=== PATIENT | female | born 1970 | race Caucasian/White ===

== ENCOUNTER → 2016-07-03 | Outpatient (CLI) | payer BC ==
[~2016-07-03] MED LIST: refresh eye drops OPB
== END | disposition home or self-care (01) ==
LOC: C.LABSPEC 14:09
PROVIDERS: ATTEND Physician Assistant
DX: N94.9 Unspecified condition associated with female genital organs and menstrual cycle (principal)

== ENCOUNTER → 2016-08-26 | Outpatient (CLI) | payer BC ==
--- NOTE | 2016-08-26 15:12 | MAMMOGRAPHY REPORT ---
BILATERAL DIGITAL DIAGNOSTIC MAMMOGRAM TOMOSYNTHESIS WITH CAD AND TARGETED LEFT ULTRASOUND: 08/26/2016 CLINICAL HISTORY: 46-year-old woman with a history of reduction mammoplasty presents for follow-up of benign-appearing masses in the left breast, particularly 3:00 retroareolar axis. Also time of annua l bilateral screening exam. TECHNIQUE: Bilateral breast tomosynthesis in addition to standard 2D mammography was performed. Curre nt study was also evaluated with a Computer Aided Detection (CAD) system. COMPARISON: Comparison is made to exams dated: 02/26/2016 ultrasound, 12/05/2015 ultrasound, 12/05/19 16 mammogram, 08/23/2015 ultrasound, 08/23/2015 mammogram, and 03/07/2014 ultrasound - [facility]. BREAST COMPOSITION: The tissue of both breasts is extremely dense, which lowers the sensitivity of m ammography. FINDINGS: Linear scar markers overlie the periareolar aspect of each breast. No obvious new mass, ar chitectural distortion or cluster of microcalcifications is seen. There are a few benign-appearing r ound and punctate microcalcifications. Targeted ultrasound was performed throughout the left breast. In the 9:00 axis, 5 cm from the nipple , there is a circumscribed anechoic benign simple cyst measuring 6.4 x 4.5 x 6.1 mm. 2 adjacent cyst s in the 10:00 left breast, 3 cm from the nipple, measure 5.5 x 3.4 x 6.2 mm. In the 12:[address], 2 cm from the nipple, there are 2 abutting anechoic simple cysts measuring 3.2 x 3.0 x 4.3 mm in conglomerate. An oval parallel circumscribed isoechoic to hypoechoic solid-appearing mass abutting t he pectoralis muscle in the 3:00 retroareolar left breast measures 5.0 x 2.6 x 5.7 mm. This has not significantly changed when comparing to the ultrasound performed 08/23/2015 at which time it measured 5.4 x 2.8 x 6.3 mm. This most likely represent a benign fibroadenoma but another 12 month follow-up targeted ultrasound is recommended to ensure at least 2 years of stability to confirm benignity. In the 3:00 left breast, 4 cm from the nipple, there is a superficial oval parallel anechoic benign sim ple cyst measuring 5.4 x 1.7 x 4.4 mm. No other discrete solid or cystic mass is seen throughout the remainder of the left breast. IMPRESSION: ACR-BI-RADS CATEGORY 3: PROBABLY BENIGN, TARGETED ULTRASOUND ACR-BI-RADS CATEGORY 3: PRO BABLY BENIGN 1. Stable mammographic appearance of the breasts. 2. There are several scattered anechoic cysts throughout the left breast on ultrasound, compatible w ith benign fibrocystic changes. 3. There is a benign-appearing circumscribed oval parallel solid appearing mass in the 3:00 retroare olar left breast measuring 6.3 mm, that has not significantly changed on prior ultrasounds dating rob k to 08/23/2015. Another 12 month follow-up targeted ultrasound is recommended to ensure at least 2 years of stability to confirm benignity. Bilateral mammography is also due at that time. These results and recommendations were discussed with the patient at the time of the exam. Approximately 10% of breast cancers are not detected with mammography. A negative mammographic report should not delay biopsy if a clinically suggestive mass is present. Nancy Armijo M.D. ay/:08/26/2016 12:48:48 Blood Tester Fowl: Eda Ha, [facility] letter sent: Follow Up Recommended 3 BI-RADS Code: ACR-BI-RADS Category 3: Probably Benign Ultrasound BI-RADS: ACR-BI-RADS Category 3: Pr obably Benign
== END | disposition home or self-care (01) ==
LOC: C.MAMM 10:35
PROVIDERS: ATTEND Obstetrics & Gynecology
DX: Z12.31 Encounter for screening mammogram for malignant neoplasm of breast (principal); N63 Unspecified lump in breast; N64.89 Other specified disorders of breast

== ENCOUNTER → 2017-09-03 | Outpatient (CLI) | payer OTHER ==
[~2017-09-03] MED LIST changes: +CHOL1000 PO; +CYAN100020 PO
[2017-09-03 13:25] LABS: BASO % 0.6 %; BASO ABS # 0.03 K/uL (0-0.2); EOS % 0.9 %; EOS ABS # 0.05 K/uL (0-0.5); HEMATOCRIT 42.6 % (37-47); HEMOGLOBIN 14.6 g/dL (12.0-16.0); LYMPH % 24.3 %; LYMPH ABS # 1.28 K/uL (1.2-3.4); MEAN CORPUSCULAR HEMOGLOBIN 32.2 pg (25-34); MEAN CORPUSCULAR HGB CONC 34.3 g/dl (32-36); MEAN PLATELET VOLUME 10.8 fL (7.4-10.4); MONO % 8.5 %; MONO ABS # 0.45 K/uL (0.11-0.59); NEUT % 65.7 %; NEUT ABS # 3.46 K/uL (1.4-6.5); PLATELET COUNT 257 K/uL (130-400); RED CELL DISTRIBUTION WIDTH CV 12.7 % (11.5-14.5); RED CELL DISTRIBUTION WIDTH SD 43.7 fL (36.4-46.3); WHITE BLOOD COUNT 5.27 K/uL (4.8-10.8)
[2017-09-03 13:34] LABS: PTT PATIENT 26.6 SECONDS (21.0-31.0)
[2017-09-03 14:19] LABS: POTASSIUM 3.7 mmol/L (3.5-5.1)
== END | disposition home or self-care (01) ==
LOC: C.LAB1850 11:58
DX: Z01.818 Encounter for other preprocedural examination (principal)

== ENCOUNTER → 2017-09-12 | Day surgery (SDC) | payer OTHER ==
[2017-09-05 10:58] VITALS: Ht 161.3 cm; Wt 48.6 kg
[~2017-09-12] VITALS: Ht 161.3 cm; Wt 48.6 kg
[~2017-09-12] MED LIST changes: +ATROPINE SULFATE 0.1 MG/ML 5ML SYR IV PRN; +CEFAZOLIN 2000MG IV PUSH 15 ML IV SCH; +DEXAMETHASONE SOD INJ 4 MG/ML VIAL ONE; +EpHEDrine SULFATE INJ 50 MG/ML AMP IV PRN; +EpINEphrine INJ 1MG/ML AMP 1 MG/ML AMP ONE; +FENTANYL CITRATE INJ 50 MCG/1 ML 2 ML VIAL IV PRN; +FENTANYL CITRATE INJ 50 MCG/1 ML 2 ML VIAL ONE; +HYDROCODONE/ACETAMIN 5/325MG TAB PO PRN; +LACTATED RINGER'S 1000ML 1,000 ML IV SCH; +LIDOCAINE 4% MPF SOAK 5 ML = 1 DOSE ONE; +LIDOCAINE HCL 2% 2 ML VIAL (20MG/ML) ONE; +LIDOCAINE/EPINEPHRINE 1% 20 ML VIAL ONE; +MIDAZOLAM HCL 1 MG/ML 2ML VIAL ONE; +ONDANSETRON INJ 2 MG/ML 2 ML VIAL IV PRN; +ONDANSETRON INJ 2 MG/ML 2 ML VIAL ONE; +OXYMETAZOLINE HCL 0.05% NA SPR 15 ML BTL SCH; +PROPOFOL IV EMULSION 10 MG/ML 20 ML VIAL ONE; +ROCURONIUM BROMIDE 10 MG/ML 5 ML VIAL ONE; +SCOPOLAMINE 1.5 MG TDSY TD ONE; +SUCCINYLCHOLINE CHLORIDE 20 MG/ML 10 ML VIAL IV ONE; -refresh eye drops OPB
--- NOTE | 2017-09-12 09:58 | History & Physical Bridge - [place] ---
H&P Re-Evaluation Bridge Note: I have examined the patient, reviewed the History & Physical and in the interval since the performance of the History & Physical I have noted the following changes of clinical significance: No changes noted
--- NOTE | 2017-09-12 10:52 | [facility] Operative Report ---
Operative Report Operative Date Sep 12, 2017. Pre-Operative Diagnosis HYPERTROPHY OF NASAL TURBINATES Post-Operative Diagnosis SAME PREOP Procedure(s) Performed Endoscopic Left Nicole Bullosa Resection And Bilateral Inferior Turbinate Reduction Surgeon DR. Raleigh VILLANUEVA Business Analyst Project Manager Surgeon(s) NONE Estimated Blood Loss 5ML Findings 1. MODERATE L NICOLE BULLOSA 2. MODERATE B ITH Specimens NONE Anesthesia Type General I attest to the content of the Intraoperative Record and any orders documented therein. Any exceptions are noted below.
--- NOTE | 2017-09-12 10:54 | Discharge Instructions ---
Discharge Instructions Date of Service Sep 12, 2017. Admission Reason for Admission: Hypertrophy Of Nasal Turbinates Discharge Discharge Diagnosis / Problem: SAME Discharge Goals Goal(s): Therapeutic intervention Activity Recommendations Activity Limitations: as noted below LIGHT ACTIVITY AND NO NOSE BLOWING FOR 2 WEEKS . Current Hospital Diet Patient's current hospital diet: Discharge Diet Recommended Diet: Regular Diet Procedures Procedures Performed: Endoscopic Left Nicole Bullosa Resection And Bilateral Inferior Turbinate Reduction Pending Studies Studies pending at discharge: no Medical Emergencies . Who to Call and When: Medical Emergencies: If at any time you feel your situation is an emergency, please call 911 immediately. . Non-Emergent Contact Non-Emergency issues call your: Surgeon . . "Provider Documentation" section prepared by John Paul Newton. .
--- NOTE | 2017-09-12 11:29 | Anesthesia Progress Nt - [facility] ---
Anesthesia Post Op Note Date & Time Sep 12, 2017 at 11:29 Vital Signs Pain Intensity: 0 Vital Signs Past 12 Hours Date Time Temp Pulse Resp B/P (MAP) Pulse Ox O2 Delivery O2 Flow Rate FiO2 09/12/17 11:22 75 17 100 09/12/17 11:22 76 17 09/12/17 11:21 37.0 100 Room Air 09/12/17 11:21 109/63 09/12/17 11:17 82 23 09/12/17 11:17 80 23 99 09/12/17 11:16 105/67 09/12/17 11:12 82 21 09/12/17 11:12 82 21 100 09/12/17 11:11 108/66 09/12/17 11:09 84 21 100 09/12/17 11:09 84 21 09/12/17 11:06 109/66 09/12/17 11:04 87 26 100 09/12/17 11:04 87 26 09/12/17 11:01 104/65 09/12/17 11:00 111/66 09/12/17 10:59 36.6 92 12 106/65 100 Humidified Oxygen 6 Mask 09/12/17 08:50 36.6 91 16 113/79 (90) 100 Room Air Notes Mental Status: alert / awake / arousable, participated in evaluation Pt Amnestic to Procedure: Yes Nausea / Vomiting: adequately controlled Pain: adequately controlled Airway Patency, RR, SpO2: stable & adequate BP & HR: stable & adequate Hydration State: stable & adequate Anesthetic Complications: no major complications apparent
[2017-09-12 11:36] VITALS: TEMP 36.5
--- NOTE | 2017-09-12 12:01 | OPERATIVE REPORT ---
DATE OF OPERATION: 09/12/2017 PREOPERATIVE DIAGNOSES: 1. Left atif bullosa. 2. Bilateral inferior turbinate hypertrophy. POSTOPERATIVE DIAGNOSES: 1. Left atif bullosa. 2. Bilateral inferior turbinate hypertrophy. PROCEDURES: 1. Endoscopic left atif bullosa resection. 2. Bilateral inferior turbinate outfracture and turbinoplasty. SURGEON: John Paul Newton MD ANESTHESIA: General endotracheal. ESTIMATED BLOOD LOSS: 5 mL. FINDINGS: 1. Moderate left atif bullosa. 2. Moderate bilateral inferior turbinate hypertrophy. SPECIMENS: None. COMPLICATIONS: None. INDICATIONS FOR THE PROCEDURE: The patient is a 47-year-old female who underwent septoplasty and inferior turbinate reduction by an petroleum transport driver in [place] in the past, who continues to complain of left nasal congestion. She has been treated with maximum medical therapy for allergic rhinitis. A CT scan did not reveal any sinusitis, but did show mild right septal deviation. In addition, it shows a moderate sized left atif bullosa and moderate bilateral inferior turbinate hypertrophy. She denies any right-sided nasal airway obstruction. She presents for the above-mentioned procedure on an outpatient elective basis. DESCRIPTION OF PROCEDURE: After informed consent had been obtained from the patient, the patient was brought to the operating room and placed on the operating room table in the supine position. Monitors were placed. After induction of general endotracheal anesthesia, the patient was prepped in the usual fashion for endoscopic sinus surgery. Lidocaine and epinephrine pledgets were placed in the bilateral nasal cavities and pressure applied. After allowing adequate time for vasoconstriction and anesthesia, the pledgets were removed. A 0 degree endoscope was used to visualize the left middle turbinate. This was injected with 1% lidocaine with 1:100,000 epinephrine. After allowing adequate time for vasoconstriction, a sickle knife was used to incise the left middle turbinate longitudinally and the lateral half of it was removed using straight Emir-Cut forceps and powered instrumentation. This in essence performed an endoscopic left atif bullosa resection. Merogel was placed over the atif bullosa excision site. A Patel elevator was then used to infracture and subsequently outfracture the inferior turbinates bilaterally. These were injected with 1% lidocaine with 1:100,000 epinephrine. A 2.0 mm turbinate blade using powered instrumentation was then used to perform bilateral inferior turbinoplasties in a submucosal fashion. The nasal cavity and nasopharynx were then suctioned. An orogastric tube was placed and the stomach was suctioned free of air and stomach contents. This marked the end of the case. The patient tolerated the procedure well. There were no apparent complications. The patient was extubated and transferred to recovery room in stable condition. I attest to the content of the Intraoperative Record and any orders documented therein. Any exception s are noted below.
[2017-09-12 12:07] VITALS: BP 94/59; PULSE 60; O2SAT 100
== END | disposition home or self-care (01) ==
LOC: X.SURG 08:27
DX: J34.3 Hypertrophy of nasal turbinates (principal); J34.89 Other specified disorders of nose and nasal sinuses; J32.9 Chronic sinusitis, unspecified; E53.8 Deficiency of other specified B group vitamins; Z90.710 Acquired absence of both cervix and uterus